=== PATIENT | male | born 1955 | race Caucasian/White ===

== ENCOUNTER 2016-06-05 14:12 | Emergency (ER) | payer MEDICARE ==
[~2016-06-05] VITALS: Ht 175.2 cm; Wt 90.7 kg
[~2016-06-05 14:12] MED LIST: ACID REDUCER 1150 MG PO; ADVAIR 250/501 EA INH; ANUSOL-HC25 MG RC; ASPIRIN ADULT L81 M1 PO; BUPROPION HCL200 MG PO; CATAFLAM50 MG PO; CLONAZEPAM0.5 MG PO; CLONAZEPAM1 MG PO; COMBIVENT1 ARO IH; DELTASONE20 MG PO; DUONEB 3 MG/3 ML3 M1 INH; FOLIC ACID1 MG PO; GABAPENTIN800 MG PO; GAVISCON500 MG PO; HYDR25T PO; HYDROCODONE BIT1 T11 PO; HYDRODIURIL25 MG PO; LANSOPRAZOLE30 MG PO; LEXAPRO20 MG PO; LOPRESSOR100 MG PO; MELOXICAM15 MG PO; METICORTEN1 MG PO; MOTRIN800 MG PO; Miralax Powder255 GM PO; NORFLEX100 MG PO; PLAVIX75 M1 PO; PREDNISONE10 MG PO; RANITIDINE150 MG PO; ROBITUSSIN AC 110 ML PO; ROBITUSSIN5 ML PO; SEROQUEL400 MG PO; TOPROL XL100 MG PO; TRAMADOL HCL50 MG PO; TYLENOL650 M1 PO; VITAMIN B-12500 MCG PO; WELLBUTRIN XL300 MG PO; XANAX0.5 MG PO; ZITHROMAX Z PA250 MG PO; ZITHROMAX250 MG PO; ZOCOR20 MG PO; ZOFRAN4 MG PO; [UNRECOGNIZED DRUG - OTHER] PO
[2016-06-05 15:24] LABS: HEMATOCRIT 45.7 % (42.0-52.0); HEMOGLOBIN 16.1 g/dl (14.0-18.0); MEAN CELL VOLUME 90.3 fl (80.0-94.0); MEAN CORPUSCULAR HGB 31.8 pg (27.0-31.0); MEAN CORPUSCULAR HGB CONC 35.2 g/dl (33.0-37.0); MEAN PLATELET VOLUME 10.7 fl (9.6-12.3); PLATELET COUNT AUTOMATED 219 10*3/uL (130-400); RED BLOOD COUNT 5.06 10*6/uL (4.50-5.90); RED CELL DISTRI WIDTH 12.9 % (0-14.5); WHITE BLOOD COUNT 10.9 10*3/uL (4.8-10.8)
[2016-06-05 15:43] LABS: ALBUMIN 4.2 gm/dl (3.1-4.5); ALKALINE PHOSPHATASE 137 U/L (45-117); BILIRUBIN, TOTAL 0.5 mg/dl (0.2-1.0); BUN 13 mg/dl (7-24); CARBON DIOXIDE 24 mmol/L (21-32); CHLORIDE 109 mmol/L (98-107); CPK 70 U/L (39-308); EST GLOM FILT AFRICAN AMERICAN > 60 ml/min; GLUCOSE 103 mg/dL (65-99); LDH 85 U/L (87-241); MAGNESIUM 2.2 mg/dL (1.5-2.1); POTASSIUM 4.5 mmol/L (3.5-5.1); SGOT/AST 20 IU/L (3-35); SGPT/ALT 37 U/L (12-78); SODIUM 144 mmol/L (136-145); TOTAL PROTEIN 7.4 gm/dL (6.4-8.2); TROPONIN I 0.026 ng/ml (<0.5)
[2016-06-05 15:44] LABS: CKMB < 0.5 ng/ml (0.5-3.6)
[2016-06-05 15:45] LABS: ATYPICAL LYMPHS 2 % (0-0); EOSINOPHIL # 0.1 10*3/uL (0-0.4); EOSINOPHILS 1 % (1-4); LYMPHOCYTE # 5.9 10*3/uL (1.3-4.4); MONOCYTE # 0.4 10*3/uL (0.1-1.0); NEUTROPHIL # 4.5 10*3/uL (2.3-7.9); NEUTROPHILS 41 % (47-73); PLATELET SUFFICIENCY NORMAL (NORMAL); PROTHROMBIN TIME 10.1 SECONDS (9.0-12.4); TOTAL CELLS COUNTED 100 #CELLS
== END 2016-06-05 18:15 | disposition short-term general hospital (02) ==
LOC: ED 14:12
PROVIDERS: Nurse Practitioner Family
DX: I24.9 Acute ischemic heart disease, unspecified (principal); F31.9 Bipolar disorder, unspecified; F32.9 Major depressive disorder, single episode, unspecified; J44.9 Chronic obstructive pulmonary disease, unspecified; K21.9 Gastro-esophageal reflux disease without esophagitis; I10 Essential (primary) hypertension; F20.9 Schizophrenia, unspecified; I25.10 Atherosclerotic heart disease of native coronary artery without angina pectoris; F17.200 Nicotine dependence, unspecified, uncomplicated; Z79.82 Long term (current) use of aspirin; Z79.899 Other long term (current) drug therapy

== ENCOUNTER → 2016-11-09 | Outpatient (CLI) | payer MEDICARE | END | disposition home or self-care (01) | LOC: LAB 10:05 | DX: K31.83 Achlorhydria (principal) ==

== ENCOUNTER 2017-05-02 15:10 | Emergency (ER) | payer MEDICARE ==
[~2017-05-02] VITALS: Ht 175.2 cm; Wt 95.3 kg
[2017-05-02] MEDS ORDERED: NITROSTAT0.4 MG SL (15:21)
[2017-05-02 16:07] LABS: BASO % 0.2 % (0.0-1.0); EOS # 0.1 10*3/uL (0.0-0.4); EOS % 1.5 % (1.0-4.0); HEMATOCRIT 41.8 % (42.0-52.0); HEMOGLOBIN 14.6 g/dl (14.0-18.0); LYMPH # 3.5 10*3/uL (1.3-4.4); LYMPH % 42.9 % (27.0-41.0); MEAN CELL VOLUME 91.5 fl (80.0-94.0); MEAN CORPUSCULAR HGB 31.9 pg (27.0-31.0); MEAN CORPUSCULAR HGB CONC 34.9 g/dl (33.0-37.0); MEAN PLATELET VOLUME 10.7 fl (9.6-12.3); MONO # 0.6 10*3/uL (0.1-1.0); MONO % 7.7 % (3.0-9.0); NEUT # 3.8 10*3/uL (2.3-7.9); NEUT % 47.5 % (47.0-73.0); PLATELET COUNT AUTOMATED 148 10*3/uL (130-400); RED BLOOD COUNT 4.57 10*6/uL (4.50-5.90); RED CELL DISTRI WIDTH 13.1 % (0-14.5); WHITE BLOOD COUNT 8.1 10*3/uL (4.8-10.8)
[2017-05-02 16:16] LABS: ACT PARTIAL THROMBO TIME 27.9 SECONDS (20.8-31.5); INTERNATIONAL NORM RATIO 0.9 (2.0-3.5)
[2017-05-02 16:23] LABS: ALBUMIN 3.6 gm/dl (3.1-4.5); ALKALINE PHOSPHATASE 147 U/L (45-117); BUN 13 mg/dl (7-24); CHLORIDE 106 mmol/L (98-107); CREATININE 1.07 mg/dL (0.70-1.30); LIPASE 158 U/L (73-393); POTASSIUM 4.6 mmol/L (3.5-5.1); SGOT/AST 16 IU/L (3-35); SGPT/ALT 25 U/L (12-78); SODIUM 139 mmol/L (136-145); TOTAL PROTEIN 7.5 gm/dL (6.4-8.2)
[2017-05-02 16:28] LABS: TROPONIN I < 0.015 ng/ml (<0.045)
[2017-05-02] MEDS ORDERED: PREDNISONE10 MG PO (17:04)
[2017-05-02] MEDS ORDERED: HYCODAN/HYDROMET5 ML PO (17:04)
[2017-05-02] MEDS ORDERED: VIBRAMYCIN100 MG PO (17:04)
== END 2017-05-02 16:40 | disposition home or self-care (01) ==
LOC: ED 15:10
PROVIDERS: Physician Assistant
DX: J40 Bronchitis, not specified as acute or chronic (principal); R19.7 Diarrhea, unspecified; R10.9 Unspecified abdominal pain; H92.02 Otalgia, left ear; J44.9 Chronic obstructive pulmonary disease, unspecified; F17.200 Nicotine dependence, unspecified, uncomplicated; Z79.82 Long term (current) use of aspirin; Z79.899 Other long term (current) drug therapy

== ENCOUNTER → 2017-11-25 | Outpatient (CLI) | payer MEDICARE, OTHER ==
[~2017-11-25] MED LIST changes: +CYCLOBENZAPRINE5 M3 PO; +HYCODAN/HYDROMET5 ML PO; +NAPROSYN500 MG PO; +NITROSTAT0.4 MG SL; +PREDNISONE20 M1 PO; +VIBRAMYCIN100 MG PO
== END | disposition home or self-care (01) ==
LOC: US 09:15
DX: K76.0 Fatty (change of) liver, not elsewhere classified (principal); M47.897 Other spondylosis, lumbosacral region

== ENCOUNTER 2017-12-21 16:16 | Emergency (ER) | payer MEDICARE, OTHER ==
[~2017-12-21 16:16] MED LIST changes: -CYCLOBENZAPRINE5 M3 PO; -NAPROSYN500 MG PO; -PREDNISONE20 M1 PO
[2017-12-21] MEDS ORDERED: NAPROSYN500 MG PO (19:07)
[2017-12-21] MEDS ORDERED: PREDNISONE20 M1 PO (19:07)
[2017-12-21] MEDS ORDERED: CYCLOBENZAPRINE5 M3 PO (19:07)
== END 2017-12-21 19:11 | disposition home or self-care (01) ==
LOC: ED 16:16
DX: S39.012A Strain of muscle, fascia and tendon of lower back, initial encounter (principal); M25.551 Pain in right hip; F17.200 Nicotine dependence, unspecified, uncomplicated; Z88.8 Allergy status to other drugs, medicaments and biological substances; Z79.899 Other long term (current) drug therapy; Z79.82 Long term (current) use of aspirin; X58.XXXA Exposure to other specified factors, initial encounter; Y93.89 Activity, other specified; Y92.89 Other specified places as the place of occurrence of the external cause; Y99.8 Other external cause status

== ENCOUNTER → 2019-07-20 | Outpatient (CLI) | payer MEDICARE, MEDICAID ==
[~2019-07-20] MED LIST changes: +CYCLOBENZAPRINE5 M3 PO; +NAPROSYN500 MG PO; +PREDNISONE20 M1 PO
[2019-07-20 08:39] LABS: HEMOGLOBIN 15.8 g/dl (14.0-18.0); MEAN CELL VOLUME 96.2 fl (80.0-94.0); MEAN CORPUSCULAR HGB 31.7 pg (27.0-31.0); MEAN CORPUSCULAR HGB CONC 32.9 g/dl (33.0-37.0); MEAN PLATELET VOLUME 11.4 fl (9.6-12.3); RED BLOOD COUNT 4.99 10*6/uL (4.50-5.90); RED CELL DISTRI WIDTH 13.7 % (0-14.5); WHITE BLOOD COUNT 7.1 10*3/uL (4.8-10.8)
[2019-07-20 09:16] LABS: CHLORIDE 111 mmol/L (98-107); POTASSIUM 4.7 mmol/L (3.5-5.1); SODIUM 144 mmol/L (136-145)
[2019-07-20 09:31] LABS: ALBUMIN 3.6 gm/dl (3.1-4.5); ALKALINE PHOSPHATASE 111 U/L (45-117); BUN 11 mg/dl (7-24); CHOLESTEROL 144 mg/dL (<200); CREATININE 1.06 mg/dL (0.70-1.30); HDL CHOLESTEROL 72 mg/dl (40-60); LDL CHOLESTEROL 55 mg/dL (9-159); SGOT/AST 13 IU/L (3-35); SGPT/ALT 12 U/L (12-78); TOTAL PROTEIN 6.6 gm/dL (6.4-8.2); TRIGLYCERIDES 83 mg/dl (<150); VLDL CHOLESTEROL 17 mg/dL (6-40)
== END | disposition home or self-care (01) ==
LOC: LAB 08:15
PROVIDERS: Physician Assistant
DX: Z12.5 Encounter for screening for malignant neoplasm of prostate (principal); C91.10 Chronic lymphocytic leukemia of B-cell type not having achieved remission; I10 Essential (primary) hypertension; I25.10 Atherosclerotic heart disease of native coronary artery without angina pectoris; M15.0 Primary generalized (osteo)arthritis; R63.4 Abnormal weight loss

== ENCOUNTER → 2019-07-23 | Outpatient (CLI) | payer MEDICARE, MEDICAID | END | disposition home or self-care (01) | LOC: CT 00:10 | DX: J43.9 Emphysema, unspecified (principal); M15.0 Primary generalized (osteo)arthritis; I25.10 Atherosclerotic heart disease of native coronary artery without angina pectoris; I10 Essential (primary) hypertension; R63.4 Abnormal weight loss; C91.10 Chronic lymphocytic leukemia of B-cell type not having achieved remission; N28.1 Cyst of kidney, acquired; I70.0 Atherosclerosis of aorta ==

== ENCOUNTER → 2020-05-30 | Outpatient (CLI) | payer MEDICARE, MEDICAID | END | disposition home or self-care (01) | LOC: COVID19 15:52 | PROVIDERS: ATTEND Internal Medicine | DX: U07.1 COVID-19 (principal) ==

== ENCOUNTER → 2021-04-27 | Outpatient (CLI) | payer MEDICARE, MEDICAID | END | disposition home or self-care (01) | LOC: US 10:48 | PROVIDERS: ATTEND Physician Assistant | DX: M79.605 Pain in left leg (principal); I10 Essential (primary) hypertension; R09.89 Other specified symptoms and signs involving the circulatory and respiratory systems ==

== ENCOUNTER 2022-01-08 17:36 | Emergency (ER) | payer OTHER, MEDICAID ==
[~2022-01-08] VITALS: Ht 177.8 cm; Wt 72.6 kg
[2022-01-08 18:55] LABS: BASO % 0.6 % (0.0-1.0); EOS # 0.1 10*3/uL (0.0-0.4); EOS % 1.8 % (1.0-4.0); HEMATOCRIT 39.7 % (42.0-52.0); MEAN CORPUSCULAR HGB 32.3 pg (27.0-31.0); MEAN PLATELET VOLUME 9.8 fl (9.6-12.3); MONO # 0.8 10*3/uL (0.1-1.0); MONO % 11.5 % (3.0-9.0); NEUT # 3.8 10*3/uL (2.3-7.9); NEUT % 55.8 % (47.0-73.0); PLATELET COUNT AUTOMATED 201 10*3/uL (130-400); RED BLOOD COUNT 4.05 10*6/uL (4.50-5.90); RED CELL DISTRI WIDTH 13.6 % (0-14.5); WHITE BLOOD COUNT 6.7 10*3/uL (4.8-10.8)
[2022-01-08 19:18] LABS: ALKALINE PHOSPHATASE 94 U/L (45-117); BUN 9 mg/dl (7-24); CHLORIDE 109 mmol/L (98-107); CREATININE 0.99 mg/dL (0.70-1.30); POTASSIUM 4.2 mmol/L (3.5-5.1); SGOT/AST 25 IU/L (3-35); SGPT/ALT 20 U/L (12-78); SODIUM 138 mmol/L (136-145); TOTAL PROTEIN 6.7 gm/dL (6.4-8.2)
[2022-01-08 21:38] LABS: BILIRUBIN Negative (Negative); BLOOD Negative (Negative); CLARITY Clear (Clear); COLOR Yellow (Yellow); GLUCOSE Negative (Negative); KETONE Negative (Negative); LEUKO ESTERASE Negative (Negative); NITRITE Negative (Negative); PH 5.5 (4.5-8.0); SPECIFIC GRAVITY 1.015 (1.001-1.030); UROBILINOGEN 0.2 E.U./dl (0.0-1.0)
[2022-01-08 21:44] LABS: EPITHELIAL CELLS 0-2; HYALINE CAST 0-2; MUCOUS 1+; RBC 0-2 rbc/hpf (0-2); WBC 0-2 wbc/hpf (0-5)
[2022-01-08] MEDS ORDERED: PERCOCET 5-3251 EACH PO (21:53)
[2022-01-08] MEDS ORDERED: CEPHALEXIN500 M1 PO (21:53)
== END 2022-01-08 22:11 | disposition home or self-care (01) ==
LOC: ED 17:36
PROVIDERS: Nurse Practitioner Family
DX: S81.811A Laceration without foreign body, right lower leg, initial encounter (principal); S10.93XA Contusion of unspecified part of neck, initial encounter; S40.011A Contusion of right shoulder, initial encounter; Z88.8 Allergy status to other drugs, medicaments and biological substances; Z79.899 Other long term (current) drug therapy; Z79.82 Long term (current) use of aspirin; Z90.49 Acquired absence of other specified parts of digestive tract; Z98.890 Other specified postprocedural states; W11.XXXA Fall on and from ladder, initial encounter; Y93.89 Activity, other specified; Y92.89 Other specified places as the place of occurrence of the external cause; Y99.8 Other external cause status

== ENCOUNTER → 2022-02-16 | Outpatient (CLI) | payer OTHER, MEDICAID ==
[~2022-02-16] MED LIST changes: +CEPHALEXIN500 M1 PO; +PERCOCET 5-3251 EACH PO
== END ==
LOC: CT 08:00
PROVIDERS: ATTEND Physician Assistant
DX: C91.10 Chronic lymphocytic leukemia of B-cell type not having achieved remission (principal); M15.0 Primary generalized (osteo)arthritis; I10 Essential (primary) hypertension; R91.8 Other nonspecific abnormal finding of lung field; F33.41 Major depressive disorder, recurrent, in partial remission; I21.9 Acute myocardial infarction, unspecified; J44.9 Chronic obstructive pulmonary disease, unspecified; Z90.49 Acquired absence of other specified parts of digestive tract

== ENCOUNTER → 2024-09-25 | Outpatient (CLI) | payer OTHER | END | disposition home or self-care (01) | LOC: CT 09-07 10:00 | PROVIDERS: ATTEND Physician Assistant | DX: Z12.2 Encounter for screening for malignant neoplasm of respiratory organs (principal); J44.9 Chronic obstructive pulmonary disease, unspecified; I25.10 Atherosclerotic heart disease of native coronary artery without angina pectoris; R59.0 Localized enlarged lymph nodes; R91.8 Other nonspecific abnormal finding of lung field; J43.2 Centrilobular emphysema; M47.814 Spondylosis without myelopathy or radiculopathy, thoracic region; F17.210 Nicotine dependence, cigarettes, uncomplicated; Z90.49 Acquired absence of other specified parts of digestive tract ==

== ENCOUNTER 2025-01-02 15:40 | Emergency (ER) | payer OTHER ==
[~2025-01-02] VITALS: Ht 177.8 cm; Wt 70.3 kg
[2025-01-02] MEDS ORDERED: Acetaminophen/Oxycodone 5 MG/325 MG TABLET PO ONE (16:10)
[2025-01-02] MEDS ORDERED: PREDNISONE20 M1 PO (16:47)
== END 2025-01-02 17:03 | disposition home or self-care (01) ==
LOC: ED 15:40
DX: M19.012 Primary osteoarthritis, left shoulder (principal); F31.9 Bipolar disorder, unspecified; I25.10 Atherosclerotic heart disease of native coronary artery without angina pectoris; J44.9 Chronic obstructive pulmonary disease, unspecified; K21.9 Gastro-esophageal reflux disease without esophagitis; I10 Essential (primary) hypertension; I25.2 Old myocardial infarction; F20.9 Schizophrenia, unspecified; F17.200 Nicotine dependence, unspecified, uncomplicated; Z88.8 Allergy status to other drugs, medicaments and biological substances; Z79.899 Other long term (current) drug therapy; Z79.82 Long term (current) use of aspirin; Z90.49 Acquired absence of other specified parts of digestive tract; Z98.890 Other specified postprocedural states; Z89.412 Acquired absence of left great toe

== ENCOUNTER 2025-02-03 12:14 | Emergency (ER) | payer OTHER ==
[~2025-02-03] VITALS: Ht 177.8 cm; Wt 70.3 kg
[2025-02-03] MEDS ORDERED: Cyclobenzaprine Hydrochlorid 10 MG TAB PO ONE (12:45)
[2025-02-03] MEDS ORDERED: PREDNISONE10 M1 PO (12:49)
[2025-02-03] MEDS ORDERED: CYCLOBENZAPRINE10 MG PO (12:49)
[2025-02-03] MEDS ORDERED: Water, Sterile 10 ML VIAL ONE (13:13)
== END 2025-02-03 14:09 | disposition home or self-care (01) ==
LOC: ED 12:14
DX: M54.2 Cervicalgia (principal); M79.601 Pain in right arm; M25.511 Pain in right shoulder; F31.9 Bipolar disorder, unspecified; I25.10 Atherosclerotic heart disease of native coronary artery without angina pectoris; J44.9 Chronic obstructive pulmonary disease, unspecified; K21.9 Gastro-esophageal reflux disease without esophagitis; I10 Essential (primary) hypertension; I25.2 Old myocardial infarction; F20.9 Schizophrenia, unspecified; F17.200 Nicotine dependence, unspecified, uncomplicated; Z88.8 Allergy status to other drugs, medicaments and biological substances; Z79.899 Other long term (current) drug therapy; Z79.82 Long term (current) use of aspirin; Z90.49 Acquired absence of other specified parts of digestive tract